=== PATIENT | male | born 1965 | race Asian ===

== ENCOUNTER 2018-03-12 23:35 | Emergency (ER) | payer OTHER ==
[2018-03-12 23:46] VITALS: BP 144/80; PULSE 93; TEMP 98.3; BMI 22.6
--- NOTE | 2018-03-13 00:14 | PDOC ---
Attending Attestation - Resident Resident Name: Liudmila Monet - ED Attending Attestation I have performed the following: I have examined & evaluated the patient, The case was reviewed & discussed with the resident, I agree w/resident's findings & plan - HPI HPI: 03/13/18 00:11 53-year-old male diabetic presents with persistent left nasal congestion and left-sided headache with throat pain in the setting of one week of URI symptoms of rhinorrhea and pharyngitis. Chills but no measured fever, nonproductive cough , no chest pain or lung pain or shortness of breath. No sick contacts or travel , reports dark phlegm from his L naris. - Physicial Exam PE: 03/13/18 00:12 VSS, well appearing and afebrile no facial swelling/erythema, slight L frontal sinus ttp TMs clear, no mastoid ttp OP clear, no exudate or plaque. uvula midline, no swelling slight submandibular LAD b/l, neck supple lungs clear - Medical Decision Making 03/13/18 00:13 53-year-old male with likely viral upper respiratory infection and now superimposed left-sided sinusitis. No respiratory distress, well-appearing. NSAIDs for pain, decongestant as needed Course of amoxicillin ENT follow-up as needed, agrees with plan and understands return criteria. Discharge Disposition - Diagnosis Viral upper respiratory infection Sinusitis Qualifiers: Sinusitis location: frontal Chronicity: acute Recurrence: non-recurrent Qualified Code(s): J01.10 - Acute frontal sinusitis, unspecified - Discharge Dispostion Disposition: HOME Condition at time of disposition: Stable - Prescriptions Prescriptions: Amoxicillin - [Amoxicillin 875mg Tablet -] 875 mg PO TID #30 tablet - Referrals Referrals: Cyrus Pierce MD [Staff Physician] - - Patient Instructions Printed Discharge Instructions: DI for Sinusitis Additional Instructions: Activity as tolerated. Stay hydrated. Tylenol 1000 mg every 8 hours and/or ibuprofen 600 mg every 8 hours as needed for pain. Your symptoms are most consistent with an upper respiratory infection and now a sinusitis. Take amoxicillin as prescribed as antibiotic. Follow up with your primary doctor as soon as possible regarding today's emergency department visit. Consider seeing an ENT specialist such as Dr. Pierce if symptoms persist. Return to the emergency department for any new or concerning symptoms, particularly persistent or worsening symptoms, facial swelling or pain, fevers or chills, difficulty breathing. - Post Discharge Activity
[2018-03-13] MEDS ORDERED: AMOXICILLIN 500 MG CAPSULE (FP) PO ONE (00:37)
[2018-03-13] MEDS ORDERED: AMOX TR/POT CLAV 875MG/125MG TABLETS (FP) ONE (00:41)
--- NOTE | 2018-03-13 01:00 | PDOC ---
History of Present Illness - General Chief Complaint: Sore Throat Stated Complaint: FATIGUE Time Seen by Provider: 03/12/18 23:41 History Source: Patient Exam Limitations: No Limitations Past History - Past Medical History Allergies/Adverse Reactions: Allergies Allergy/AdvReac Type Severity Reaction Status Date / Time pollen extracts Allergy Verified 03/12/18 23:46 fruits Allergy Uncoded 03/12/18 23:46 Home Medications: Ambulatory Orders Aspirin 81 mg PO DAILY 03/12/18 Metformin HCl [Metformin HCl ER] 1,000 mg PO BID 03/12/18 Multivitamin [Multiple Vitamins] 1 each PO DAILY 03/12/18 Weiner-3 Fatty Acids/Fish Oil [Fish Oil 1,000 mg Capsule] 1 each PO DAILY Amoxicillin - [Amoxicillin 875mg Tablet -] 875 mg PO TID #30 tablet 03/13/18 Anemia: No Asthma: No Cancer: No Cardiac Disorders: No CVA: No COPD: No CHF: No Dementia: No Diabetes: Yes GI Disorders: Yes (ABDOMINAL PAIN) Disorders: No HTN: Yes Hypercholesterolemia: Yes Liver Disease: No Seizures: No Thyroid Disease: No - Surgical History Abdominal Surgery: No Appendectomy: No Cardiac Surgery: No Cholecystectomy: No Lung Surgery: No Neurologic Surgery: No Orthopedic Surgery: No - Suicide/Smoking/Psychosocial Hx Smoking History: Current every day smoker Have you smoked in the past 12 months: Yes Number of Cigarettes Smoked Daily: 10 Information on smoking cessation initiated: No 'Breaking Loose' booklet given: 07/21/13 Hx Alcohol Use: No Drug/Substance Use Hx: No Substance Use Type: None Hx Substance Use Treatment: No *Physical Exam - Vital Signs Last Vital Signs Temp Pulse Resp BP Pulse Ox 98.3 F 93 H 18 144/80 100 03/12/18 23:44 03/12/18 23:44 03/12/18 23:44 03/12/18 23:44 03/12/18 23:44 - Physical Exam General Appearance: Yes: Nourished. No: Apparent Distress HEENT: positive: EOMI, Normal Voice, Hearing Grossly Normal. negative: Scleral Icterus (R), Scleral Icterus (L), Nasal Congestion Neck: positive: Trachea midline, Supple. negative: Tender, Rigid Respiratory/Chest: positive: Lungs Clear, Normal Breath Sounds. negative: Respiratory Distress, Crackles, Rhonchi, Stridor, Wheezing Cardiovascular: positive: Regular Rhythm, Regular Rate. negative: Murmur Gastrointestinal/Abdominal: positive: Normal Bowel Sounds, Soft. negative: Tender, Organomegaly, Pulsatile Mass, Guarding Musculoskeletal: positive: Normal Inspection. negative: Decreased Range of Motion, Vertebral Tenderness Extremity: positive: Normal Capillary Refill, Normal Inspection, Normal Range of Motion. negative: Tender, Cyanosis Integumentary: positive: Normal Color, Dry, Warm. negative: Erythema, Rash, Bruising Neurologic: positive: rhia II-XII NML intact, Fully Oriented, Alert, Normal Mood/ Affect, Normal Response, Motor Strength 5/5 Medical Decision Making - Medical Decision Making Adult patient p/w sore throat, subj fever, left-sided headache and sinus pressure x1 week. Initial Vital Signs Temp Pulse Resp BP Pulse Ox 98.3 F 93 H 18 144/80 100 03/12/18 23:44 03/12/18 23:44 03/12/18 23:44 03/12/18 23:44 03/12/18 23:44 Exam: Results as noted in Physical Exam section. DDX IBNLT: Sinusitis, sinus headache, viral URI, strep pharyngitis, tracheitis, etc. W/U ordered: None TX ordered: amoxicillin Reassessment: Patient feels comfortable going home, repeat exam unchanged. DISCHARGE Given ttp left sinuses likely patient has sinus infection. Amoxicillin dose ordered for here in the ED; E-Rx sent. The Pt has gotten significant relief of symptoms with ED medications. Workup is not concerning for emergency-level pathology at this time. The Pt is appropriate for discharge with close outpatient follow up. They are comfortable with this plan and will follow up with their PCP in 1-3 days. Specific return precautions are discussed and they will come back to the ER if necessary. *DC/Admit/Observation/Transfer Diagnosis at time of Disposition: Viral upper respiratory infection Sinusitis Qualifiers: Sinusitis location: frontal Chronicity: acute Recurrence: non-recurrent Qualified Code(s): J01.10 - Acute frontal sinusitis, unspecified - Discharge Dispostion Disposition: HOME Condition at time of disposition: Stable Decision to Admit order: No - Prescriptions Prescriptions: Amoxicillin - [Amoxicillin 875mg Tablet -] 875 mg PO TID #30 tablet - Referrals Referrals: Cyrus Pierce MD [Staff Physician] - - Patient Instructions Printed Discharge Instructions: DI for Sinusitis Additional Instructions: Activity as tolerated. Stay hydrated. Tylenol 1000 mg every 8 hours and/or ibuprofen 600 mg every 8 hours as needed for pain. Your symptoms are most consistent with an upper respiratory infection and now a sinusitis. Take amoxicillin as prescribed as antibiotic. Follow up with your primary doctor as soon as possible regarding today's emergency department visit. Consider seeing an ENT specialist such as Dr. Pierce if symptoms persist. Return to the emergency department for any new or concerning symptoms, particularly persistent or worsening symptoms, facial swelling or pain, fevers or chills, difficulty breathing. - Post Discharge Activity
== END 2018-03-13 00:44 | disposition home or self-care (01) ==
LOC: JER 23:35
DX: J01.10 Acute frontal sinusitis, unspecified (principal); J06.9 Acute upper respiratory infection, unspecified; I10 Essential (primary) hypertension; E78.00 Pure hypercholesterolemia, unspecified; E11.9 Type 2 diabetes mellitus without complications; Z79.84 Long term (current) use of oral hypoglycemic drugs; F17.210 Nicotine dependence, cigarettes, uncomplicated
CPT/HCPCS: 99281-25

== ENCOUNTER 2023-06-27 13:43 | Emergency (ER) | payer OTHER ==
[2023-06-27 13:58] VITALS: BMI 22.2
[2023-06-27 15:23] LABS: EPI CELLS 6 /uL (0-25.1); HYALINE CASTS 0 /uL (0-3.1); PH,URINE 6.5 (5.0-8.0); URINE APPEARANCE CLEAR; URINE BACTERIA 2 /uL (0-1359); URINE BILIRUBIN NEGATIVE (NEGATIVE); URINE COLOR YELLOW; URINE GLUCOSE (UA) 1+ (NEGATIVE); URINE KETONE TRACE (NEGATIVE); URINE LEUK ESTERASE NEGATIVE (NEGATIVE); URINE NITRITE NEGATIVE (NEGATIVE); URINE PROTEIN 1+ (NEGATIVE); URINE RBC 9 /uL (0-23.9); URINE UROBILINOGEN 0.2 mg/dL (0.2-1.0); URINE WBC 9 /uL (0-25.8)
[2023-06-27 16:21] VITALS: BP 133/88; PULSE 99; RESP 18; TEMP 98.5
== END 2023-06-27 16:46 | disposition home or self-care (01) ==
LOC: JER 13:43
PROC: 0T2BX0Z Change Drainage Device in Bladder, External Approach (ICD-10-PCS; principal; 2023-06-27)
DX: R33.9 Retention of urine, unspecified (principal); R10.30 Lower abdominal pain, unspecified
CPT/HCPCS: 81003; 87086; 99283-25

== ENCOUNTER 2024-08-04 04:13 | Day surgery (SDC) | payer BC ==
[2024-07-27 17:13] VITALS: BMI 21.8
[2024-08-04] MEDS ORDERED: ACETAMINOPHEN 500 MG TABLET (FP) PO PRN (09:19)
[2024-08-04 15:51] VITALS: RESP 18; TEMP 97.7
[2024-08-04 17:14] VITALS: BP 149/81; PULSE 84
== END 2024-08-04 17:40 | disposition home or self-care (01) ==
LOC: JASU-SURG 04:13
PROVIDERS: ATTEND Pain Medicine Pain Medicine
PROC: 3E0T33Z Introduction of Anti-inflammatory into Peripheral Nerves and Plexi, Percutaneous Approach (ICD-10-PCS; 2024-08-04)
PROC: 3E0T3BZ Introduction of Anesthetic Agent into Peripheral Nerves and Plexi, Percutaneous Approach (ICD-10-PCS; principal; 2024-08-04 15:45)
DX: M47.812 Spondylosis without myelopathy or radiculopathy, cervical region (principal)
CPT/HCPCS: 76000-TC-FY